=== PATIENT | female | born 1960 | race Caucasian/White ===

== ENCOUNTER → 2025-08-14 14:03 | Outpatient (REF) | payer OTHER, SELFPAY | LOC: HWRAD 14:03 | PROVIDERS: ATTENDING PHYSICIAN Student in an Organized Health Care Education/Training Program | DX: M81.0 Age-related osteoporosis without current pathological fracture (principal) | CPT/HCPCS: 77080 ==

== ENCOUNTER 2025-09-01 17:14 | Emergency (ER) | payer OTHER, SELFPAY ==
[2025-09-01 17:16] VITALS: BP 102/73
[2025-09-01 17:33] LABS: Hematocrit 36.5 % (37.0-47.0); Hemoglobin 12.1 g/dL (12.0-16.0); Mean Corp Hgb Conc. 33.2 g/dL (33.0-37.0); Mean Corpuscular Volume 92.6 fL (81.0-99.0); Nucleated Red Blood Cells % 0 %; Platelet Count 194 10^3/uL (130-400); Red Cell Dist. Width 13.0 % (11.5-14.5)
[2025-09-01 17:52] LABS: ALT (SGPT) 129 U/L (0-35); AST (SGOT) 71 U/L (14-36); Albumin 3.4 g/dl (3.5-5.0); Alkaline Phosphatase 175 U/L (38-126); Blood Urea Nitrogen 38 mg/dl (7-17); Calcium 8.8 mg/dl (8.4-10.2); Carbon Dioxide 22 mmol/L (22-30); Chloride 104 mmol/L (98-107); Glucose 84 mg/dl (70-99); Lipase 35 U/L (23-300); Potassium 3.5 mmol/L (3.5-5.1); Sodium 133 mmol/L (135-145); Total Protein 6.2 g/dl (6.3-8.2); eGFR 56.46
[2025-09-01 20:42] VITALS: BP 103/70
[2025-09-01 22:00] VITALS: BP 84/57
[2025-09-01] MEDS: ZOFRAN ODT (ORALLY DISINTEGRATING) 4 MG PO (22:37)
[2025-09-01 22:51] LABS: Urine Character Clear (Clear)
[2025-09-01 22:56] LABS: Urine Squamous Cell 0-2 /LPF (Few)
[2025-09-01 22:57] LABS: Urine Red Blood Cell 0-2 /HPF (0-2)
--- NOTE | 2025-09-01 23:54 | ED.GENMED ---
History of Present Illness
General
Chief Complaint: Abdominal Symptoms
Source: patient
Exam Limitations: none
Time Seen by Provider: 09/01/25 22:04
Nursing documentation reviewed up to this point in time: agreed with
History of Present Illness
History of Present Illness:
Note:
CHIEF COMPLAINT(S)
The patient presents with severe nausea and abdominal discomfort after starting a new medication.
HISTORY OF PRESENT ILLNESS
The patient is a 64-year-old male who began taking the medication Macrobid one day prior to the onset of symptoms. The patient reports experiencing severe nausea and explosive diarrhea after taking the medication. He states that he has been unable
to retain any food, which has likely affected his ability to absorb the medication fully. He reports being nauseous throughout the day, with slight abdominal pain occurring after episodes of vomiting. The patient mentions that attempts to eat result
in vomiting shortly thereafter, describing the vomiting as 'explosive.' On Sunday, the patient experienced chills briefly but has had no fevers. The patient feels dry and reports feeling more comfortable when sitting in a ball, indicating
discomfort. He is seeking relief, specifically requesting medication for nausea.
MEDICATIONS
The patient is currently taking Macrobid but has been struggling to retain the medication due to vomiting. He is seeking anti-nausea medication and is willing to take more Macrobid at home as prescribed.
PHYSICAL EXAM
General: Appears dehydrated but alert.
Skin: Warm, dry.
Head: Normocephalic, atraumatic.
Neck: Supple, trachea midline.
Eye, Ears, Nose, Mouth, and Throat: Oral mucosa appears dry.
Cardiovascular: Normal peripheral perfusion, no edema.
Respiratory: Respirations are non-labored.
Gastrointestinal: Abdomen is non-distended but sensitive post-vomiting episodes.
Back: Normal range of motion, normal alignment.
Musculoskeletal: Normal range of motion, strength is normal.
Neurological: Alert and oriented to person, place, time, and situation. No focal neurological deficits observed.
Psychiatric: Cooperative, appropriate mood and affect.
PROBLEM LIST
- Acute nausea and vomiting
- Dehydration
PLAN
1. Administer intravenous fluids to address dehydration.
2. Administer anti-nausea medication (Zofran) and provide additional prescription if symptoms improve.
3. Monitor the patient�s response to treatment.
4. Educate the patient on the importance of staying hydrated and provide advice on taking medication with food if tolerable.
5. Discharge the patient with instructions to return if symptoms persist or worsen after 24 hours.
DIFFERENTIAL DIAGNOSIS
The Differential Diagnosis includes, in no particular order, and is not limited to:
1. Adverse reaction to Macrobid
2. Gastroenteritis
3. Medication-induced gastrointestinal upset
4. Dehydration secondary to vomiting
5. Peptic ulcer disease exacerbation
6. Viral gastroenteritis
7. Food poisoning
8. Acute gastritis
9. Non-specific viral syndrome
10. Anxiety-related nausea and gastrointestinal upset.
Disposition:
SUMMARY OF ENCOUNTER
A 64-year-old female presented with nausea and vomiting after being treated for a urinary tract infection (UTI) with nitrofurantoin (Macrobid). She reported an inability to retain any food or fluids. Although she was advised that intravenous fluids
would be beneficial, she refused but was able to tolerate oral liquids. After administration of ondansetron (Zofran) and rehydrating with oral fluids, she reported feeling much better. She declined further testing and expressed her wish to be
discharged.
DISPOSITION
Discharge in improved condition.
ASSESSMENT
The patient experienced nausea and vomiting likely due to a medication reaction from nitrofurantoin. She also had signs of dehydration and slight hypotension.
EMERGENCY TREATMENTS ADMINISTERED
Ondansetron (Zofran) was given to alleviate nausea.
PLAN
Discharge the patient, advise her on the importance of remaining hydrated, and continue oral intake as tolerated. No further testing or interventions needed as per patient request.
PATIENT EDUCATION AND COUNSELING
The patient was educated on the potential side effects of nitrofurantoin and the importance of staying hydrated, especially given her symptoms. She was informed about the option of taking medications with food to minimize gastrointestinal upset if
possible. She was also advised to return to the emergency department if symptoms persisted or worsened.
FOLLOW-UP INSTRUCTIONS
The patient was instructed to follow up with her primary care provider for reassessment and further management of her UTI and medication tolerance.
MEDICATION RECONCILIATION
Continue taking nitrofurantoin as prescribed for UTI treatment. Ondansetron was administered for nausea management.
MEDICAL DECISION MAKING
-Complexity of Data Reviewed: Chronic conditions affecting care include UTI. Possible DDx includes adverse reaction to nitrofurantoin, medication-induced gastrointestinal upset, and dehydration secondary to vomiting.
-Data:
Category 1:
No additional tests were pursued due to patient preference.
Category 2:
None applicable.
Category 3:
None applicable.
-Risk: Prescription medication management was considered. The patient was advised to continue therapy with monitoring for potential side effects. The decision was made to manage the patient on an outpatient basis given the resolution of nausea with
ondansetron and oral hydration tolerance.
DIAGNOSIS
- Urinary tract infection (UTI) - ICD-10-CM: N39.0
- Medication induced nausea and vomiting due to nitrofurantoin (suspected) - ICD-10-CM: T43.615A
Past History
Past History
ED Past Medical History: Negative CAD, HTN or Hypercholesterolemia
ED Past Surgical History: None
Social History
Tobacco: Smoker
Living: with family
Phy Exam
Physical Exam
Physical Exam:
.
Course
Orders/Labs/Results
Orders:
Orders
09/01/25 17:26
Complete Blood Count/With Diff Urgent
Comprehensive Metabolic Panel Urgent
Lipase Urgent
09/01/25 22:34
Ondansetron Orally Disint [Zofran Odt (Orally Disintegrating)] 4 mg PO NOW STA
09/01/25 22:40
Urinalysis Reflex To Culture Urgent
Date Specimen was Collected: 09/01/25
Time Specimen was Collected: 17:19
Urine Microscopic Reflex Cult Urgent
Abnormal Lab Results
09/01/25 09/01/25
17:26 22:40
RBC 3.94 L 10^6/uL
(4.20-5.40)
Hct 36.5 L %
(37.0-47.0)
Absolute Neuts (auto) 8.3 H 10^3/uL
(1.4-6.5)
Absolute Lymphs (auto) 0.7 L 10^3/uL
(1.2-3.4)
Neutrophils % 84.4 H %
(42.2-75.2)
Lymphocytes % 7.1 L %
(20.5-51.1)
Sodium 133 L mmol/L
(135-145)
BUN 38 H mg/dl
(7-17)
Creatinine 1.1 H mg/dL
(0.6-1.0)
AST 71 H U/L
(14-36)
ALT 129 H U/L
(0-35)
Alkaline Phosphatase 175 H U/L
(38-126)
Total Protein 6.2 L g/dl
(6.3-8.2)
Albumin 3.4 L g/dl
(3.5-5.0)
Urine Ketones 1+ A
(Negative)
Ur Occult Blood Reflex 2+ A
(Negative)
Urine Bacteria (Reflex) Few A
(Negative)
Urine Albumin (Reflex) 2+ A
(Neg - Trace)
09/01/25 17:26
09/01/25 17:26
Vital Signs
Initial and Last Documented VS:
Initial Vital Signs
Temp Pulse Resp BP Pulse Ox
98.1 F 82 17 102/73 100
09/01/25 17:16 09/01/25 17:16 09/01/25 17:16 09/01/25 17:16 09/01/25 17:16
Last Documented Vital Signs
Temp Pulse Resp BP Pulse Ox
98.1 F 69 15 84/57 96
09/01/25 17:16 09/01/25 22:30 09/01/25 22:30 09/01/25 22:00 09/01/25 23:56
*Pulse Oximetry
SaO2: 96
Oxygen Mode of Delivery: Room air
Patient hypoxic: no
*Critical Care Note
Total Time (30-74mins, 75-104mins- exclusive of procedures): Not Applicable
ED Attending Note
-
Portions of this chart may have been created with voice recognition software.� Occasional wrong word or��sound alike� substitutions may have occurred due to the inherent limitations of voice recognition software.
Discharge Plan
Departure
Patient Disposition: Home (Routine Discharge)
Date of Disposition: 09/01/25
Time of Disposition: 23:55
Patient with high blood pressure during this ER visit?: No
Condition: Good
Discharge Problem:
Nausea & vomiting, Medication reaction
Instructions: Nausea and Vomiting, Adult (DC)
Prescriptions:
New
ondansetron 4 mg tablet,disintegrating
4 mg PO TID PRN (Reason: nausea and vomiting) 5 Days Qty: 15 0RF
No Action
MULTIVITAMINS
1 tab PO DAILY
Calcium With Vitamin D3
1 tab PO DAILY
Patient Comments:
calcium 1200mg/vitamin D3
Tymlos
80 mcg SC HS
mupirocin 1 APPLIC ointment
1 applic intranasal BID Qty: 1 0RF
sulfamethoxazole-trimethoprim 1 TABLET tablet
1 tab PO BID 7 Days Qty: 14 0RF
Rx Instructions:
Take 1 tablet twice a day to prevent infection
sennosides [senna] 1 TABLET tablet
2 tab PO BID 0RF
aspirin 325 MG tablet
325 mg PO DAILY 0RF
docusate sodium 100 MG capsule
100 mg PO BID 0RF
acetaminophen 500 MG tablet
1,000 mg PO QID Qty: 1 0RF
Rx Instructions:
standing order
gabapentin 300 MG capsule
300 mg PO TID Qty: 30 0RF
methylprednisolone [Medrol ([place])] 4 MG tablets,dose pack
4 tab PO . DIRECT Qty: 21 0RF
Rx Instructions:
21 tablet dose pack
cyclobenzaprine 10 MG tablet
5 mg PO TID PRN (Reason: muscle spasms) Qty: 30 0RF
polyethylene glycol 3350 17 GRAMS powder in packet
17 grams PO DAILY PRN (Reason: bowel movement ) Qty: 1 0RF
Rx Instructions:
Over the counter
Use 1 packet daily until bowel movement
nicotine 14 MG patch 24 hour
14 mg transdermal DAILY Qty: 1 0RF
Rx Instructions:
Over the counter
Place one patch daily
Wear 14 mg patch x 6 weeks, then 7 mg patch x 4 weeks
Referrals:
[facility] [Outside]
Activity Restrictions/Additional Instructions:
Thank You for choosing [facility].
It was a pleasure meeting you and taking part in your care. We hope for your continued healing and wellness.
Please read discharge instructions in their entirety. However, they are for general education and may not describe your exact diagnosis at discharge. Information on your ER visit and medical conditions were discussed with you along with appropriate
follow up information...
If indicated, please take your medications as instructed and indicated on discharge paperwork.
Please schedule a follow up appointment as directed. Call to schedule an appointment
Please return to the emergency department with ANY change in, persisting, or worsening of symptoms. If any of your symptoms do not improve, or persist, or become more severe within 6-12 hours, please return to the emergency department for further
care.
Please return to the emergency department if you develop a headache, neck pain/stiffness, fever greater than 100.4F, chest pain, shortness of breath, persistent nausea, vomiting, slurred speech, difficulty walking, numbness/tingling, weakness, signs
of infection or any other symptoms that are worrisome to you.
If you have any questions or concerns please do not hesitate to call the Hospital at .
Interventions
Interventions:
*Risk Screen - Suicide Last Done: 09/01/25 17:16
*General Assessment Last Done: 09/01/25 17:16
*Neglect/Abuse Screening Last Done: 09/01/25 17:16
*ED- Fall Risk Assessment Last Done: 09/02/25 00:01
*ED COVID-19 Vaccine History Last Done: 09/01/25 17:16
*ED Influenza Vaccine History Last Done: 09/01/25 17:16
*Nursing Disposition Last Done: 09/02/25 00:01
MW-Fanebw-Gzlavvfohf Assessment Last Done: 09/01/25 20:47
Discharge Date and Time
Discharge Date/Time: 09/02/25 00:02
Print Language: QATARI
== END 2025-09-02 00:02 | disposition home or self-care (01) ==
LOC: EMR 17:14
PROVIDERS: Emergency Medicine; EMERGENCY PHYSICIAN Student in an Organized Health Care Education/Training Program
DX: R11.2 Nausea with vomiting, unspecified (principal); T37.8X5A Adverse effect of other specified systemic anti-infectives and antiparasitics, initial encounter; E86.0 Dehydration; I95.9 Hypotension, unspecified; F17.200 Nicotine dependence, unspecified, uncomplicated
CPT/HCPCS: 99283; 80053; 81003; 81015; 83690; 85025